=== PATIENT | male | born 2005 | race Caucasian/White ===

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

== ENCOUNTER 2024-03-20 10:04 | Emergency (ER) | payer BC, OTHER ==
--- NOTE | 2024-03-20 10:19 | ED ---
General Adult HPI - General Chief complaint: Overdose Stated complaint: Overdose Time Seen by Provider: 03/20/24 10:09 Source: patient, EMS, RN notes reviewed Mode of arrival: EMS Limitations: no limitations - History of Present Illness Initial comments: Patient is a 19-year-old male presenting to the emergency department with concerns for intoxication. Patient took 2 bottles of Delsym. Patient states there is only dextromethorphan in this. Patient denies any Tylenol being present or any other component. Patient states he took this in order to get high. Patient denies any depression. Patient denies any suicidal ideation. No homicidal thoughts. Patient is feeling lightheaded and dry. Patient also is hearing music. - Related Data Home Medications Medication Instructions Recorded Confirmed Escitalopram [Lexapro] 10 mg PO DAILY 10/15/22 02/01/23 Previous Rx's Medication Instructions Recorded Doxycycline [Vibramycin] 100 mg PO BID 7 Days #14 capsule 02/01/23 Allergies Allergy/AdvReac Type Severity Reaction Status Date / Time Sulfa (Sulfonamide Allergy Unknown Verified 02/01/23 14:02 Antibiotics) Review of Systems ROS Statement: Those systems with pertinent positive or pertinent negative responses have been documented in the HPI. ROS Other: All systems not noted in ROS Statement are negative. Constitutional: Denies: fever Eyes: Denies: eye pain ENT: Denies: ear pain Respiratory: Denies: cough Cardiovascular: Denies: chest pain Endocrine: Denies: fatigue Gastrointestinal: Denies: abdominal pain Psychiatric: Reports: as per HPI. Denies: depression, suicidal thoughts Past Medical History Past Medical History: No Reported History, Seizure Disorder Additional Past Medical History / Comment(s): Mom states occas. has difficulty breathing with slight chest pain. States she thinks when his allergies are bothering him this happens. Fx. R ankle years ago. History of Any Multi-Drug Resistant Organisms: None Reported Past Surgical History: No Surgical Hx Reported Additional Past Surgical History / Comment(s): nasal 2017 Additional Past Anesthesia/Blood Transfusion Reaction / Comment(s): Has never had anesthesia. Family on Mother's side is severely allergic to sulfa. Mother's sister from an allergic reaction to sulfa. Also other family members severly allergic to sulfa. Past Psychological History: No Psychological Hx Reported, ADD/ADHD, Anxiety, Depression Smoking Status: Current every day smoker, Vaper Past Alcohol Use History: None Reported Past Drug Use History: None Reported, Marijuana - Past Family History Mother Family Medical History: No Reported History General Exam Limitations: no limitations General appearance: alert, in no apparent distress Head exam: Present: normocephalic Eye exam: Present: normal appearance, PERRL, EOMI, nystagmus ENT exam: Present: normal oropharynx Neck exam: Present: normal inspection Respiratory exam: Present: normal lung sounds bilaterally Cardiovascular Exam: Present: regular rate, normal rhythm GI/Abdominal exam: Present: soft. Absent: tenderness Extremities exam: Present: normal inspection Neurological exam: Present: alert Psychiatric exam: Present: normal affect, normal mood Skin exam: Present: other (No acute abrasions) Course Vital Signs 03/20/24 03/20/24 03/20/24 10:07 10:12 10:20 Temperature 98.4 F Pulse Rate 95 92 105 H Respiratory 16 22 17 Rate Blood Pressure 158/102 158/102 O2 Sat by Pulse 100 100 Oximetry 03/20/24 03/20/24 03/20/24 10:30 10:40 10:50 Temperature Pulse Rate 92 95 90 Respiratory 15 14 16 Rate Blood Pressure 147/95 150/94 O2 Sat by Pulse 100 98 99 Oximetry EKG Findings - EKG Results: EKG: interpreted by ERMD (rsr V1 and V2.), sinus rhythm, normal axis, normal ST/T Medical Decision Making - Medical Decision Making Was pt. sent in by a medical professional or institution (, PA, CORDUROY BRUSHER OPERATOR, urgent care, hospital, or correction...) When possible be specific @ -No Did you speak to anyone other than the patient for history (EMS, parent, family, police, friend...)? What history was obtained from this source @ -No Did you review nursing and triage notes (agree or disagree)? Why? @ -I reviewed and agree with nursing and triage notes Were old charts reviewed (outside hosp., previous admission, EMS record, old EKG, old radiological studies, urgent care reports/EKG's, correction records)? Report findings @ -Patient had a sign in however no visit 2 days ago. This was reviewed and it appears patient presented with similar problems. Patient does admit to this and when advised against this patient is agreeable to not do this again. Differential Diagnosis (chest pain, altered mental status, abdominal pain women, abdominal pain men, vaginal bleeding, weakness, fever, dyspnea, syncope, headache, dizziness, GI bleed, back pain, seizure, CVA, palpatations, mental health, musculoskeletal)? @ -Differential Altered Mental Status: Hypoglycemia, DKA, hypercapnia, ETOH, overdose, CO poisoning, trauma, myxedema coma, HTN encephalopathy, infection, encephalitis, psychosis, intercranial hemorrhage, hepatic encephalopathy, meningitis, CVA, this is not meant to be an all-inclusive list EKG interpreted by me (3pts min.). @ -As above X-rays interpreted by me (1pt min.). @ -None done CT interpreted by me (1pt min.). @ -None done U/S interpreted by me (1pt. min.). @ -None done What testing was considered but not performed or refused? (CT, X-rays, U/S, labs)? Why? @ -None What meds were considered but not given or refused? Why? @ -None Did you discuss the management of the patient with other professionals (professionals i.e. , PA, CORDUROY BRUSHER OPERATOR, lab, RT, psych nurse, licensed clinical social worker, dot etcher, teacher, radiation officer, case packer)? Give summary @ -No Was smoking cessation discussed for >3mins.? @ -No Was critical care preformed (if so, how long)? @ -No Were there social determinants of health that impacted care today? How? (Homelessness, low income, unemployed, alcoholism, drug addiction, transportation, low edu. Level, literacy, decrease access to med. care, skilled nursing, rehab)? @ -No Was there de-escalation of care discussed even if they declined (Discuss DNR or withdrawal of care, Hospice)? DNR status @ -No What co-morbidities impacted this encounter? (DM, HTN, Smoking, COPD, CAD, Cancer, CVA, ARF, Chemo, Hep., AIDS, mental health diagnosis, sleep apnea, morbid obesity)? @ -None Was patient admitted / discharged? Hospital course, mention meds given and route, prescriptions, significant lab abnormalities, going to OR and other pertinent info. @ -Patient reevaluated and feeling much better. Patient states he is close to normal. Patient is alert and oriented. Patient has steady gait. Patient advised against ingestion again. Undiagnosed new problem with uncertain prognosis? @ -No Drug Therapy requiring intensive monitoring for toxicity (Heparin, Nitro, Insulin, Cardizem)? @ -No Were any procedures done? @ -No Diagnosis/symptom? @ -Dextromethorphan ingestion Acute, or Chronic, or Acute on Chronic? @ -Acute Uncomplicated (without systemic symptoms) or Complicated (systemic symptoms)? @ -Default Side effects of treatment? @ -No Exacerbation, Progression, or Severe Exacerbation? @ -No Poses a threat to life or bodily function? How? (Chest pain, USA, IA, pneumonia, PE, COPD, DKA, ARF, appy, cholecystitis, CVA, Diverticulitis, Homicidal, Suicidal, threat to staff... and all critical care pts) @ -No - Lab Data Result diagrams: 03/20/24 10:03/20/24 10: Lab Results 03/20/24 03/20/24 03/20/24 Range/Units 10:22 10: 11:00 WBC 8.9 (4.0-11.0) k/uL RBC 5.10 (4.30-5.90) m/uL Hgb 14.3 (13.0-17.5) gm/dL Hct 42.7 (39.0-53.0) % MCV 83.7 (80.0-100.0) fL MCH 28.1 (25.0-35.0) pg MCHC 33.6 (31.0-37.0) g/dL RDW 14.7 (11.5-15.5) % Plt Count 258 (150-450) k/uL MPV 7.3 Neutrophils % 78 % Lymphocytes % 15 % Monocytes % 4 % Eosinophils % 1 % Basophils % 1 % Neutrophils # 6.9 (1.3-7.7) k/uL Lymphocytes # 1.4 (1.0-4.8) k/uL Monocytes # 0.3 (0-1.0) k/uL Eosinophils # 0.1 (0-0.7) k/uL Basophils # 0.0 (0-0.2) k/uL Sodium 137 (137-145) mmol/L Potassium 4.0 (3.5-5.1) mmol/L Chloride 103 (98-107) mmol/L Carbon Dioxide 28 (22-30) mmol/L Anion Gap 6 mmol/L BUN 13 (9-20) mg/dL Creatinine 0.81 (0.66-1.25) mg/dL Est GFR (CKD-EPI)AfAm >90 (>60 ml/min/1.73 sqM) Est GFR (CKD-EPI)NonAf >90 (>60 ml/min/1.73 sqM) Glucose 84 (74-99) mg/dL Calcium 9.4 (8.4-10.2) mg/dL Total Bilirubin 0.6 (0.2-1.3) mg/dL AST 27 (17-59) U/L ALT 22 (4-49) U/L Alkaline Phosphatase 62 (38-126) U/L Total Protein 7.4 (6.3-8.2) g/dL Albumin 4.8 (3.5-5.0) g/dL Salicylates <1.0 mg/dL Urine Opiates Screen Not Detected (NotDetected) Ur Oxycodone Screen Not Detected (NotDetected) Urine Methadone Screen Not Detected (NotDetected) Acetaminophen <10.0 ug/mL Ur Barbiturates Screen Not Detected (NotDetected) U Tricyclic Antidepress Not Detected (NotDetected) Ur Phencyclidine Scrn Not Detected (NotDetected) Ur Amphetamines Screen Not Detected (NotDetected) U Methamphetamines Scrn Not Detected (NotDetected) U Benzodiazepines Scrn Not Detected (NotDetected) Urine Cocaine Screen Not Detected (NotDetected) U Marijuana (THC) Screen Not Detected (NotDetected) Serum Alcohol <10 mg/dL Disposition Clinical Impression: Dextromethorphan overdose Disposition: HOME SELF-CARE Condition: Stable Instructions (If sedation given, give patient instructions): Adult Overdose (ED) Additional Instructions: Do not overtake dextromethorphan or any similar substance. Please do follow-up with your primary care physician in the next day or 2 for recheck. No driving today. Return for thoughts of self-harm, confusion, worsening symptoms or any other concerns. Discharged to sober truck driver heavy. Is patient prescribed a controlled substance at d/c from ED?: No Referrals: Lesvia Paz MD [Primary Care Provider] - 1-2 days Time of Disposition: 12:15
[2024-03-20] MEDS: SODIUM CHLORIDE 0.9% 1,000 ML IV STA (10:23)
[2024-03-20 10:40] VITALS: TEMP 98.4
[2024-03-20 10:53] LABS: Basophils % (A) 1 %; Eosinophils # (A) 0.1 k/uL (0-0.7); Eosinophils % (A) 1 %; HCT 42.7 % (39.0-53.0); HGB 14.3 gm/dL (13.0-17.5); Lymphocytes # (A) 1.4 k/uL (1.0-4.8); Lymphocytes % (A) 15 %; MCH 28.1 pg (25.0-35.0); MCHC 33.6 g/dL (31.0-37.0); MCV 83.7 fL (80.0-100.0); Mean Platelet Volume 7.3; Monocytes # (A) 0.3 k/uL (0-1.0); Monocytes % (A) 4 %; Neutrophils # (A) 6.9 k/uL (1.3-7.7); Neutrophils % (A) 78 %; Platelet Count 258 k/uL (150-450); RDW 14.7 % (11.5-15.5); WBC 8.9 k/uL (4.0-11.0)
[2024-03-20 11:27] LABS: ALT 22 U/L (4-49); AST 27 U/L (17-59); Acetaminophen <10.0 ug/mL; African American GFR (CKD) >90 (>60 ml/min/1.73 sqM); Albumin 4.8 g/dL (3.5-5.0); Alcohol <10 mg/dL; Alkaline Phosphatase 62 U/L (38-126); Anion Gap 6 mmol/L; Blood Urea Nitrogen 13 mg/dL (9-20); Calcium 9.4 mg/dL (8.4-10.2); Carbon Dioxide 28 mmol/L (22-30); Chloride 103 mmol/L (98-107); Glucose 84 mg/dL (74-99); Non-African American GFR(CKD) >90 (>60 ml/min/1.73 sqM); Salicylate <1.0 mg/dL; Sodium 137 mmol/L (137-145); Total Bilirubin 0.6 mg/dL (0.2-1.3); Total Protein 7.4 g/dL (6.3-8.2)
[2024-03-20 11:36] LABS: Amphetamine Screen,Urine Not Detected (NotDetected); Barbiturate Screen,Urine Not Detected (NotDetected); Benzodiazepines Screen,Urine Not Detected (NotDetected); Cocaine Screen,Urine Not Detected (NotDetected); Methadone Screen, Urine Not Detected (NotDetected); Opiate Screen,Urine Not Detected (NotDetected); Oxycodone Screen, Urine Not Detected (NotDetected); Phencyclidine Screen,Urine Not Detected (NotDetected); Tricyclic Antidepressant,Urine Not Detected (NotDetected); Urn Cannabinoid Scrn Not Detected (NotDetected)
[2024-03-20 12:36] VITALS: BP 147/94; PULSE 86; RESP 20
== END 2024-03-20 12:32 | disposition home or self-care (01) ==
LOC: EC 10:04
DX: T50.6X1A Poisoning by antidotes and chelating agents, accidental (unintentional), initial encounter (principal); F17.290 Nicotine dependence, other tobacco product, uncomplicated; Z88.2 Allergy status to sulfonamides
CPT/HCPCS: 36415; 93005; 80053; 85025; 80306; 80143; 80179; 99285; 96360; 96361; G0480; 80320